=== PATIENT | female | born 1955 | race Caucasian/White ===

== ENCOUNTER 2016-09-25 11:30 | Inpatient (IN) ==
--- NOTE | 2016-09-24 21:48 | Discharge Summary ---
<Shea Wolf - Last Filed: 09/24/16 21:44> Date of Encounter: 09/24/16 - Discharge Diagnosis (1) Instability of prosthetic knee Priority: Primary Status: Acute Qualifiers: Encounter type: initial encounter Qualified Code(s): T84.029A - Dislocation of unspecified internal joint prosthesis, initial encounter; Z96.659 - Presence of unspecified artificial knee joint (2) History of DVT (deep vein thrombosis) Priority: Secondary Status: Chronic (3) Obesity Priority: Secondary Status: Chronic Qualifiers: Obesity type: unspecified obesity type Obesity severity: unspecified obesity severity Qualified Code(s): E66.9 - Obesity, unspecified (4) Diabetes Priority: Secondary Status: Chronic Qualifiers: Diabetes mellitus type: type 2 Diabetes mellitus complication status: with unspecified complications Diabetes mellitus mcc insulin use: unspecified mcc insulin use status Qualified Code(s): E11.8 - Type 2 diabetes mellitus with unspecified complications (5) Hypertension Priority: Secondary Status: Chronic Qualifiers: Hypertension type: essential hypertension Qualified Code(s): I10 - Essential (primary) hypertension - Discharge Medications Home Medications: Alendronate Sodium [Fosamax] 70 mg PO LUCAS 11/26/15 [History] Amlodipine [Norvasc] 10 mg PO QPM 11/26/15 [History] Atorvastatin [Lipitor] 10 mg PO HS 11/26/15 [History] Cholecalciferol (Vitamin D3) [Vitamin D3] 2,000 unit PO DAILY 11/26/15 [History] Hydrochlorothiazide 25 mg PO DAILY 11/26/15 [History] Lisinopril [Zestril] 40 mg PO DAILY 11/26/15 [History] Metoprolol Succinate 100 mg PO QPM 11/26/15 [History] Ondansetron ODT [Zofran ODT] 4 mg SL Q6HR PRN 11/26/15 [History] Paroxetine [Paxil] 20 mg PO DAILY 11/26/15 [History] Vitamin E 100 unit PO QDPC 11/26/15 [History] Rivaroxaban [Xarelto] 20 mg PO DAILY #30 tablet 09/11/16 [Rx] OxyCODONE Immed Rel [Roxicodone 5 MG] 5 - 10 mg PO Q6HR PRN #40 tablet 09/24/16 [Rx] Adalimumab [Humira] 40 mg SQ Q2W 09/25/16 [History] Ascorbate Calcium [Vitamin C] 500 mg PO DAILY 09/25/16 [History] Exenatide Microspheres [Bydureon Pen] 2 mg SQ SA 09/25/16 [History] Insulin DETEMIR [Levemir] 30 unit SQ HS 09/25/16 [History] Levothyroxine [Synthroid] 125 mcg PO 0630 09/25/16 [History] Multivitamin [Multi-Day Vitamins] 1 each PO DAILY 09/25/16 [History] Pioglitazone HCl [Actos] 30 mg PO DAILY 09/25/16 [History] Potassium Chloride [K-Tab ER] 20 meq PO QPM 09/25/16 [History] Allergies/Adverse Reactions: Allergies Sulfa (Sulfonamide Antibiotics) Adverse Reaction (Verified 09/25/16 13:09) Cramping of the Muscles Primary care physician: Curtis Mejia MD - Patient Status Disposition: Home, Self-Care Condition: Good - Discharge Instructions Follow Up With: Ace Rose MD [Partnered Physician] - 10/24/16 8:30 am Shea Wolf PAC [Physician Supervisor [employer] Department] - 10/05/16 10:30 am Curtis Mejia MD [Primary Care Provider] - 11/29/16 2:00 pm - Hospital Course Hospital course: Ms. Argueta is a 61 year old female - Time Spent with Patient Total time spent providing and/or coordinating discharge services: <Ace Rose - Last Filed: 09/27/16 08:01> Date of Encounter: 09/27/16 Time of Encounter: 08:00 - Discharge Diagnosis (1) Instability of prosthetic knee Priority: Primary Status: Acute Qualifiers: Encounter type: subsequent encounter Qualified Code(s): T84.029D - Dislocation of unspecified internal joint prosthesis, subsequent encounter; Z96.659 - Presence of unspecified artificial knee joint (2) History of DVT (deep vein thrombosis) Priority: Secondary Status: Chronic (3) Obesity Priority: Secondary Status: Chronic Qualifiers: Obesity type: unspecified obesity type Obesity severity: unspecified obesity severity Qualified Code(s): E66.9 - Obesity, unspecified (4) Diabetes Priority: Secondary Status: Chronic Qualifiers: Diabetes mellitus type: type 2 Diabetes mellitus complication status: with unspecified complications Diabetes mellitus extermination inspector insulin use: unspecified mcc insulin use status Qualified Code(s): E11.8 - Type 2 diabetes mellitus with unspecified complications (5) Hypertension Priority: Secondary Status: Chronic Qualifiers: Hypertension type: essential hypertension Qualified Code(s): I10 - Essential (primary) hypertension (6) Ulcerative colitis Priority: Secondary Status: Chronic Qualifiers: Ulcerative colitis location: unspecified ulcerative colitis location Digestive disease complication type: without complication Qualified Code(s): K51.90 - Ulcerative colitis, unspecified, without complications - Patient Status Functional capacity at discharge: uses cane/walker Overall status at discharge: patient is progressing back to baseline - Hospital Course Hospital course: Ms. Argueta is a 61 year old female The patient had an uneventful postoperative course. They received antibiotics and physical therapy and were discharged in stable condition. There will follow -up in the office in 2 weeks. Patient on blood thinner preop - Time Spent with Patient Total time spent providing and/or coordinating discharge services:
[2016-09-25] MEDS ORDERED: CeFAZolin Pre 2,000 MG/100 ML 2,000 MG/100 ML BAG IVPB ONE (12:04)
--- NOTE | 2016-09-25 12:06 | History & Physical Report ---
Date of Encounter: 09/25/16 Time of Encounter: 12:05 24 Hour HP Update - Instructions Instructions: If the History and Physical is less than 30 days old and was completed prior to A.M. admission and or procedure and has NOT been updated on calendar day of procedure please complete this update prior to performing procedure. - Update Patient reports changes in Medical Condition: No Changes in assessment/condition: No Changes in Medication: No Preop tests/diagnostics Reviewed: Yes Surgery Remains Indicated: Yes Consent for Planned Operative Procedure(s) Verified: Yes - Pre-Operative Checklist Preoperative Checklist Indicated: No Prophylactic Antibiotic Ordered: Yes Is VTE Prophylaxis Indicated?: Yes
[2016-09-25] MEDS ORDERED: Ringers Solution, Lactated 1,000 ML IVC SCH ×2 (12:15→18:03)
--- NOTE | 2016-09-25 12:23 | Anesthesia Evaluation PreOp ---
Date of Encounter: 09/25/16 Time of Encounter: 12:20 - Past History Planned Operation: L TKA (revision) Cardiac History: HTN, Hyperlipidemia Pulmonary History: Denies Any Significant HX FRAMING SPECIALIST History: Denies Any Significant HX Other Medical History: Renal (CKD), Diabetes Type II, Thyroid, Other ( Ulcerative colitis) Anesthesia History: No Prior Anesthetic Complications Alcohol Use: none Drug use: none Medications and Allergies Alendronate Sodium [Fosamax] 70 mg PO LUCAS 11/26/15 [History] Amlodipine [Norvasc] 10 mg PO DAILY 11/26/15 [History] Ascorbic Acid [Vitamin C] 500 mg PO QDPC 11/26/15 [History] Atorvastatin [Lipitor] 10 mg PO HS 11/26/15 [History] Azathioprine [Imuran] 50 mg PO TID 11/26/15 [History] Cholecalciferol (Vitamin D3) [Vitamin D3] 2,000 unit PO QDPC 11/26/15 [History] Hydrochlorothiazide 25 mg PO DAILY 11/26/15 [History] Lisinopril [Zestril] 40 mg PO DAILY 11/26/15 [History] Metoprolol Succinate 100 mg PO DAILY 11/26/15 [History] Ondansetron ODT [Zofran ODT] 4 mg SL Q6HR 11/26/15 [History] Paroxetine [Paxil] 20 mg PO DAILY 11/26/15 [History] Vitamin E 100 unit PO QDPC 11/26/15 [History] Rivaroxaban [Xarelto] 20 mg PO DAILY #30 tablet 09/11/16 [Rx] OxyCODONE Immed Rel [Roxicodone 5 MG] 5 - 10 mg PO Q6HR PRN #40 tablet 09/24/16 [Rx] Allergies Sulfa (Sulfonamide Antibiotics) Adverse Reaction (Verified 07/12/16 14:32) Cramping of the Muscles - Meds/Allergy Pre-op Review Medications Reviewed: Yes Allergies Reviewed: Yes Beta Blockers on Current Med List: Yes If Beta Blockers taken, Date/Time (Last Dose taken): 09-24-2016 metoprolol ER 17: 00 Anesthesia Results - Labs Laboratory Tests 09/13/16 09/13/16 09:46 09:46 WBC 5.5 Hgb 14.1 Hct 42.4 Plt Count 319 Sodium 139 Potassium 4.0 Chloride 105 Carbon Dioxide 24 BUN 17 Creatinine 0.69 Est GFR ( Amer) > 60 Est GFR (Non-Af Amer) > 60 BUN/Creatinine Ratio 25 - Imaging EKG: report reviewed, image reviewed (SR; low QRS voltage precordial leads; pattern consistent with pulm disease, mod voltage criteria for LVH) Anesthesia Exam Last Vital Signs Temp 98.8 F 09/25/16 12:11 Pulse 76 09/25/16 12:11 Resp 18 09/25/16 12:11 BP 148/84 09/25/16 12:11 Pulse Ox 97 09/25/16 12:11 Weight: 86 kg NPO (# of Hours): >> 8 hrs - HEENT Pupil (Motor): Pupils equal, EOMI Mallampati: III Teeth: Normal Oral Opening: Greater than 3 - FRAMING SPECIALIST LOC: Oriented FRAMING SPECIALIST Motor: Normal RUE, Normal LUE, Normal RLE, Normal LLE, Normal Face - Cardiac Rhythm: Regular Murmur: None - Pulmonary Breath Sounds: bilateral Clear Respiratory Effort: Symmetrical Anesthesia Assess/Plan ASA Score: 3 Modified [place] Scale for Level of Consciousness: Cooperative, oriented, and tranquil Anesthetic Plan: General, Regional Monitoring Plan: Standard Monitors Recovery Plan: PACU
[2016-09-25] MEDS ORDERED: *HR* Propofol 200 MG/20 ML VIAL IVP ONE (13:20)
[2016-09-25] MEDS ORDERED: Ketorolac 30 MG/ML VIAL ONE (13:20)
[2016-09-25] MEDS ORDERED: *HR* Midazolam HCl 2 MG/2 ML VIAL ONE (13:20)
[2016-09-25] MEDS ORDERED: *HR* FentaNYL (PF) 100 MCG/2 ML VIAL ONE ×2 (13:20→16:06)
[2016-09-25] MEDS ORDERED: *HR* Rocuronium Bromide 50 MG/5 ML VIAL ONE (13:20)
[2016-09-25] MEDS ORDERED: Lidocaine -MPF 2% 2 ML VIAL ONE (13:20)
[2016-09-25] MEDS ORDERED: Ondansetron 4 MG/2 ML VIAL ONE (13:20)
[2016-09-25] MEDS ORDERED: Dexamethasone 4 MG/ML VIAL ONE (13:23)
[2016-09-25] MEDS ORDERED: ROPIVACAINE HCL/PF 0.5% 30 ML VIAL ONE (14:41)
[2016-09-25] MEDS ORDERED: Bupivacaine/Clonidine Syringe 1 EACH SYRINGE ONE (14:42)
--- NOTE | 2016-09-25 15:14 | Anesthesia Procedures ---
Date of Encounter: 09/25/16 Time of Encounter: 15:00 Procedures: Anesthesia - Nerve Block Procedure Date: 09/25/16 Time: 15:00 Allergies/Adv Reactions: Vital Signs/O2 Sat/Glucose, Most Recent Temp Pulse Resp BP Pulse Ox 98.8 F 74 18 147/73 99 09/25/16 12:11 09/25/16 15:00 09/25/16 12:11 09/25/16 15:00 09/25/16 15:00 Blood Glucose* 122 Pre-op Diagnosis: left knee oa Surgical Procedure: left tka Checklist: Correct Patient Identifier, Correct procedure, History checked Correct side: Left Blood Thinner: No Monitor Applied: EKG, BP, Pulse Oximetry Supplemental Oxygen via Nasal Cannula (L/min): 2 Sedation: Versed (mg): 2 Sedation: Fentanyl (mcg): 100 Indication: Post Op Analgesia Pre-op Neuro Deficits: No Block Type: Femoral, Other (iPACK) Catheter placed: No Sterile Technique: Yes Ultrasound used: Yes Anatomy identified: Yes Visual spread of Local: Yes Neuro Stimulation: Yes (femoral only) Nerve Stimulator Range: 0.2 - 0.4 mA Blood on Needle Aspiration: No Smooth Injection of Local: Yes Pain with Injection of Local: No Prep: Chlorhexadine Needle: 22 x 50 mm Stimuplex (femoral), 21 x 100 mm Stimuplex (iPACK) Local: 0.25% Bupivicaine w/Clonidine 20 mcg/cc (20mL for iPACK), Ropivacaine ( 30mL 0.5% for femoral), Other (10mg Decadron for each block (20mg total)) Volume (cc): 50 Number of Attempts: 1 Complications: None/effective block Vitals: Vital Signs/O2 Sat/Glucose, Most Recent Temp Pulse Resp BP Pulse Ox 98.8 F 74 18 147/73 99 09/25/16 12:11 09/25/16 15:00 09/25/16 12:11 09/25/16 15:00 09/25/16 15:00 Blood Glucose* 122
[2016-09-25] MEDS ORDERED: Ondansetron 4 MG/2 ML VIAL IVP PRN ×2 (15:48→18:03)
[2016-09-25] MEDS ORDERED: *HR* Labetalol 100 MG/20 ML MDV IVP PRN (15:48)
[2016-09-25] MEDS ORDERED: Albuterol 2.5 MG/3 ML NEBULIZER IH PRN (15:48)
[2016-09-25] MEDS ORDERED: Neostigmine Methylsulfate 3 MG/3 ML SYRINGE ONE (16:08)
--- NOTE | 2016-09-25 16:28 | Orthopedic Operative Note ---
Date of procedure: 09/25/16 Pre-op diagnosis: Unstable left total knee Post-op diagnosis: same Procedure: Procedure: Left revision total knee Estimated blood loss: 300 mL Hardware: Biomet SS K 55 left femur 14 x 80 stem, 63 stem tibia, 12 x 80 stem. 20 constrained Elena, 37 patella Exam Under anesthesia: Full extension and flexion to 90 degrees significant varus valgus instability Procedural Notes: Unstable total knee, monobloc tibia Operative procedure: The patient was brought to the operating room and placed on the operating room table. After general anesthesia was administered the operative knee was examined. Findings were noted in the exam under anesthesia. The operative extremity was prepped and draped in sterile surgical fashion. The patient received IV antibiotics prior to skin incision. A standard midline incision was made centered over the patella through the old incision. The incision was made through the skin and subcutaneous tissue. A medial parapatellar tendon approach was performed. Care was taken to preserve tissue along the medial aspect of the patella. And to protect the patella tendon. The deep MCL was released off the medial tibia. The infra patella fat pad was excised. Fluid was encountered this was normal joint fluid, Cultures were obtained and gram . The knee was brought into flexion the interface between the patient's tibial component and patient bone was disrupted with an osteotome and oscillating saw. The component was removed without significant bone loss. attention was then turned to the patient's femoral component. The interface between the femoral component and distal femur were disrupted with a osteotome and oscillating saw. Femoral component was removed removed without significant bone loss. The tibia was sized to a 63 it was reamed up to a 12 x 80. Trial had good fit and fixation. The femur was sized to a 55, was reamed up to a 14 x 80. The finishing guide was seated and the box cut was made. The trial had good fit and fixation. Both trial components were seated and the 20 constrained Elena was seated and secured. The knee had full flexion and full extension with no instability. The patella was everted, the patella was transected below the patella component. It was sized to a 37 the guide was seated the lug holes are drilled. Patella had excellent patella tracking. The trial components were removed. The knee sat for 2 minutes with a Betadine saline solution. It was irrigated out with 2 L of pulse irrigation. The components were assembled on the back table, the tibia cemented first followed by the femur. The 20 constrained liner was seated and secure. The knee was brought to full extension while the cement hardened. The patella was cemented and held in place with patellar holding clamp. After the cement hardened the knee was irrigated out again. The extensor mechanism was closed with a running #2 Fiberwire suture and a running #2 PDS suture. The deep tissue was irrigated and closed deep with #1 PDS suture superficially with 0 PDS suture. The skin was closed with Dermabond and skin neil. The patient was placed in a sterile dressing and postoperative brace. They were extubated and transferred to recovery room in stable condition. Anesthesia: GETJovanny Surgeon: Ace Rose Lidar Analyst: Shea Wolf Condition: stable Disposition: PACU
[2016-09-25] MEDS ORDERED: *HR* Labetalol 20 MG/4 ML SYRINGE IVP ONE (16:39)
[2016-09-25] MEDS: *HR* HYDROmorphone (PF) 1 MG/ML SYRINGE IVP PRN ×3 (17:27→21:23)
[2016-09-25 17:31] LABS: Hemoglobin 12.4 g/dL (11.5-15.4)
[2016-09-25] MEDS ORDERED: *HR* Enoxaparin 30 MG/0.3 ML SYRINGE SQ SCH (18:00)
[2016-09-25] MEDS ORDERED: Acetaminophen 325 MG TABLET PO PRN (18:03)
[2016-09-25] MEDS ORDERED: *HR* Dextrose 50 % in Water (Syg) 50 ML SYRINGE IVP PRN (18:03)
[2016-09-25] MEDS ORDERED: Naloxone 0.4 MG/ML INJ IVP PRN (18:03)
[2016-09-25] MEDS ORDERED: MOM Conc 10 ML UD.LIQ PO PRN (18:03)
[2016-09-25] MEDS ORDERED: Dextrose Gel 15 GM PO PRN ×2 (18:03)
[2016-09-25] MEDS ORDERED: D5% in Water 1,000 ML IV PRN (18:03)
[2016-09-25] MEDS ORDERED: (Adalimumab [Humira] 40 MG) SQ SCH (18:03)
[2016-09-25] MEDS ORDERED: Temazepam 15 MG CAPSULE PO PRN (18:03)
[2016-09-25] MEDS ORDERED: *HR* OxyCODONE Immed Rel 5 MG TABLET PO PRN (18:03)
[2016-09-25] MEDS ORDERED: Sennosides 8.6 MG TABLET PO PRN (18:03)
[2016-09-25] MEDS: *HR* OxyCODONE Immed Rel 5 MG TABLET PO PRN (18:56)
[2016-09-25] MEDS: amLODIPine 5 MG TABLET PO SCH (18:57)
[2016-09-25] MEDS: Metoprolol XL (24 HR) Succ 50 MG TAB.ER.24H PO SCH (18:57)
[2016-09-25] MEDS: Insulin LISPRO 300 UNITS/3 ML VIAL SQ SCH (18:58)
[2016-09-25] MEDS ORDERED: NON-FORMULARY MEDICATION 1 EACH EACH (Insulin Detemir 30 UNIT) SQ SCH (21:00)
[2016-09-25] MEDS: ceFAZolin 2,000 MG in D5% in Water 100 ML IVPB SCH (21:22)
[2016-09-25] MEDS: Insulin DETEMIR 100 UNIT/ML X5UNITS SQ SCH (21:22)
[2016-09-25] MEDS: *HR* Rivaroxaban 10 MG TABLET PO SCH (21:23)
[2016-09-26] MEDS: ceFAZolin 2,000 MG in D5% in Water 100 ML IVPB SCH (04:56)
[2016-09-26] MEDS: *HR* OxyCODONE Immed Rel 5 MG TABLET PO PRN ×3 (04:57→20:23)
--- NOTE | 2016-09-26 06:39 | Orthopedics Progress Note ---
Date of Encounter: 09/26/16 Time of Encounter: 06:39 - Assessment and Plan (1) Instability of prosthetic knee Current Visit: Yes Status: Acute Qualifiers: Encounter type: subsequent encounter Qualified Code(s): T84.029D - Dislocation of unspecified internal joint prosthesis, subsequent encounter; Z96.659 - Presence of unspecified artificial knee joint (2) History of DVT (deep vein thrombosis) Current Visit: Yes Status: Chronic (3) Obesity Current Visit: Yes Status: Chronic Qualifiers: Obesity type: unspecified obesity type Obesity severity: unspecified obesity severity Qualified Code(s): E66.9 - Obesity, unspecified (4) Diabetes Current Visit: No Status: Chronic Qualifiers: Diabetes mellitus type: type 2 Diabetes mellitus complication status: with unspecified complications Diabetes mellitus senior care insulin use: unspecified long term care pharmacist insulin use status Qualified Code(s): E11.8 - Type 2 diabetes mellitus with unspecified complications (5) Hypertension Current Visit: No Status: Chronic Qualifiers: Hypertension type: essential hypertension Qualified Code(s): I10 - Essential (primary) hypertension (6) Ulcerative colitis Current Visit: No Status: Chronic Qualifiers: Ulcerative colitis location: unspecified ulcerative colitis location Digestive disease complication type: without complication Qualified Code(s): K51.90 - Ulcerative colitis, unspecified, without complications Subjective Interval history: Patient was seen this morning doing well without complaints. Afebrile vital signs stable. Operative extremity: Neurovascularly intact Dressing clean dry and intact Calves nontender Assessment and plan: Continue with postoperative care hematocrit 35 Objective Vital signs: Vital Signs Temp Pulse Resp BP Pulse Ox 09/26/16 04:00 98.3 F 80 17 128/73 95 09/26/16 00:00 98.4 F 84 17 131/71 95 09/25/16 21:20 97.9 F 80 16 115/67 98 09/25/16 20:00 97.9 F 80 14 101/56 99 09/25/16 19:00 97.7 F 76 16 137/70 96 09/25/16 18:30 97.9 F 69 16 121/63 95 09/25/16 18:03 97.7 F 76 14 119/60 98 09/25/16 17:50 77 15 132/58 96 09/25/16 17:40 97.4 F L 79 14 137/65 97 09/25/16 17:30 77 14 125/70 98 09/25/16 17:20 72 16 137/64 99 09/25/16 17:10 76 14 165/88 98 09/25/16 17:00 97.4 F L 87 16 157/72 98 09/25/16 15:00 74 147/73 99 09/25/16 14:35 70 167/80 99 09/25/16 12:11 98.8 F 76 18 148/84 97 09/25/16 12:00 98.8 F 76 18 148/84 97 Intake and Output 09/25/16 09/25/16 09/26/16 15:59 23:59 07:59 Intake Total 100 / 100 100 / 100 Output Total 300 / 300 425 / 425 Balance -200 / -200 -325 / -325 Intake: IV Fluids 100 / 100 100 / 100 Ancef 2,000 MG In 100 / 100 Dextrose 5% 100 ML @ 200 mls/hr IVPB Q8H [facility] Rx#: [id number] Ancef Premix 2,000 MG/100 100 / 100 ML 2,000 mg In 100 ml @ 200 mls/hr IVPB PREOP ONE Rx#:[id number] Oral 0 / 0 Output: Urine 425 / 425 Estimated Blood Loss 300 / 300 Other: Weight 86.183 kg Blood Glucose* 122 156 - Labs CBC & BMP: 09/25/16 17:21 Labs: Abnormal lab results POC Glucose 151 (58-89) H 09/25/16 17:10 - VTE Documentation of Mechanical Device: Venous foot pump, device Consult Discharge Plan - Plan Referrals: Curtis Mejia MD [Partnered Physician] -
[2016-09-26 07:12] LABS: BUN/Creatinine Ratio 21 (6-26); Blood Urea Nitrogen 14 mg/dL (7-20); Calcium 8.1 mg/dL (8.6-10.8); Carbon Dioxide 24 mEq/L (19-29); Chloride 100 mEq/L (98-109); Glucose 165 mg/dL (70-99); Osmolality,Calculated 278 (280-300); Potassium 4.2 mEq/L (3.5-4.5); Sodium 132 mEq/L (136-145); eGFR For African Americans > 60 (> 60); eGFR For Non-African Americans > 60 (> 60)
[2016-09-26 07:13] LABS: Hematocrit 34.6 % (35.3-44.9); Hemoglobin 11.2 g/dL (11.5-15.4)
[2016-09-26] MEDS: Insulin LISPRO 300 UNITS/3 ML VIAL SQ SCH ×3 (08:04→18:26)
[2016-09-26] MEDS: Cholecalciferol (D-3) 1,000 UNIT TABLET PO SCH (08:05)
[2016-09-26] MEDS: Multivit/Ca/Min/Fe/FA 1 TAB TABLET PO SCH (08:05)
[2016-09-26] MEDS: (Vitamin E [Vitamin E] 100 UNIT) PO SCH (08:05)
[2016-09-26] MEDS: Lisinopril 20 MG TABLET PO SCH (08:05)
[2016-09-26] MEDS: *HR* Pioglitazone 30 MG TABLET PO SCH (08:05)
[2016-09-26] MEDS: hydroCHLOROthiazide 25 MG TABLET PO SCH (08:05)
[2016-09-26] MEDS: Ascorbic Acid 500 MG TABLET PO SCH (08:05)
[2016-09-26] MEDS: *HR* Rivaroxaban 10 MG TABLET PO SCH (17:11)
[2016-09-26] MEDS: amLODIPine 5 MG TABLET PO SCH (17:11)
[2016-09-26] MEDS: Metoprolol XL (24 HR) Succ 50 MG TAB.ER.24H PO SCH (17:12)
[2016-09-26] MEDS: *HR* HYDROmorphone (PF) 1 MG/ML SYRINGE IVP PRN ×2 (21:20→23:28)
[2016-09-26] MEDS: Insulin DETEMIR 100 UNIT/ML X5UNITS SQ SCH (21:23)
[2016-09-27] MEDS: *HR* HYDROmorphone (PF) 1 MG/ML SYRINGE IVP PRN ×2 (03:57→06:59)
[2016-09-27 06:05] LABS: Hematocrit 32.7 % (35.3-44.9); Hemoglobin 10.9 g/dL (11.5-15.4)
[2016-09-27 06:19] LABS: BUN/Creatinine Ratio 24 (6-26); Blood Urea Nitrogen 17 mg/dL (7-20); Calcium 8.7 mg/dL (8.6-10.8); Carbon Dioxide 27 mEq/L (19-29); Chloride 93 mEq/L (98-109); Glucose 152 mg/dL (70-99); Osmolality,Calculated 271 (280-300); Sodium 128 mEq/L (136-145); eGFR For African Americans > 60 (> 60); eGFR For Non-African Americans > 60 (> 60)
--- NOTE | 2016-09-27 08:00 | Orthopedics Progress Note ---
Date of Encounter: 09/27/16 Time of Encounter: 07:59 - Assessment and Plan (1) Instability of prosthetic knee Current Visit: Yes Status: Acute Qualifiers: Encounter type: subsequent encounter Qualified Code(s): T84.029D - Dislocation of unspecified internal joint prosthesis, subsequent encounter; Z96.659 - Presence of unspecified artificial knee joint (2) History of DVT (deep vein thrombosis) Current Visit: Yes Status: Chronic (3) Obesity Current Visit: Yes Status: Chronic Qualifiers: Obesity type: unspecified obesity type Obesity severity: unspecified obesity severity Qualified Code(s): E66.9 - Obesity, unspecified (4) Diabetes Current Visit: No Status: Chronic Qualifiers: Diabetes mellitus type: type 2 Diabetes mellitus complication status: with unspecified complications Diabetes mellitus retirement insulin use: unspecified meterman insulin use status Qualified Code(s): E11.8 - Type 2 diabetes mellitus with unspecified complications (5) Hypertension Current Visit: No Status: Chronic Qualifiers: Hypertension type: essential hypertension Qualified Code(s): I10 - Essential (primary) hypertension (6) Ulcerative colitis Current Visit: No Status: Chronic Qualifiers: Ulcerative colitis location: unspecified ulcerative colitis location Digestive disease complication type: without complication Qualified Code(s): K51.90 - Ulcerative colitis, unspecified, without complications Subjective Interval history: Patient was seen this morning doing well without complaints. Afebrile vital signs stable. Operative extremity: Neurovascularly intact Dressing clean dry and intact Calves nontender Assessment and plan: Continue with postoperative care hematocrit 32 discharged today Objective Vital signs: Vital Signs Temp Pulse Resp BP Pulse Ox 09/27/16 06:25 98.4 F 83 16 155/89 94 L 09/27/16 04:59 98.4 F 69 16 156/84 97 09/27/16 01:42 98.3 F 72 16 131/77 94 L 09/26/16 23:08 98.3 F 77 16 132/75 97 09/26/16 15:26 98.4 F 72 16 119/68 97 09/26/16 11:04 98.0 F 71 16 107/68 93 L Intake and Output 09/26/16 09/26/16 09/27/16 15:59 23:59 07:59 Output Total 800 / 800 Balance -800 / -800 Output: Urine 800 / 800 Other: Blood Glucose* 132 114 150 - Labs CBC & BMP: 09/27/16 05:49 09/27/16 05:49 Labs: Abnormal lab results Hgb 10.9 g/dL (11.5-15.4) L 09/27/16 05:49 Hct 32.7 % (35.3-44.9) L 09/27/16 05:49 Sodium 128 mEq/L (136-145) L 09/27/16 05:49 Chloride 93 mEq/L (98-109) L 09/27/16 05:49 Glucose 152 mg/dL (70-99) H 09/27/16 05:49 POC Glucose 132 (58-89) H 09/26/16 11:35 Calculated Osmolality 271 (280-300) L 09/27/16 05:49 - VTE Documentation of Mechanical Device: Venous foot pump, device Consult Discharge Plan - Plan Referrals: Ace Rose MD [Partnered Physician] - 10/24/16 8:30 am Shea Wolf, PAC [Physician Freezing Machine Operator] - 10/05/16 10:30 am Curtis Mejia MD [Primary Care Provider] - 11/29/16 2:00 pm
[2016-09-27 08:34] VITALS: BP 173/78
[2016-09-27] MEDS: Insulin LISPRO 300 UNITS/3 ML VIAL SQ SCH (08:48)
[2016-09-27] MEDS: Multivit/Ca/Min/Fe/FA 1 TAB TABLET PO SCH (08:49)
[2016-09-27] MEDS: Cholecalciferol (D-3) 1,000 UNIT TABLET PO SCH (08:49)
[2016-09-27] MEDS: Ascorbic Acid 500 MG TABLET PO SCH (08:49)
[2016-09-27] MEDS: *HR* Pioglitazone 30 MG TABLET PO SCH (08:49)
[2016-09-27] MEDS: hydroCHLOROthiazide 25 MG TABLET PO SCH (08:49)
[2016-09-27] MEDS: Lisinopril 20 MG TABLET PO SCH (08:49)
[2016-09-27] MEDS: (Vitamin E [Vitamin E] 100 UNIT) PO SCH (08:50)
[2016-09-30] MEDS ORDERED: (Exenatide Microspheres [Bydureon Pen] 2 MG) SQ SCH (17:06)
[2016-10-01] MEDS ORDERED: (Alendronate Sodium [Fosamax] 70 MG) PO SCH (06:30)
== END 2016-09-27 10:36 | disposition home or self-care (01) | DRG 467 ==
LOC: SAMDAY 11:30 → 3NENU 18:26
PROVIDERS: ADMIT Orthopaedic Surgery; ATTEND Orthopaedic Surgery